=== PATIENT | male | born 2005 | race Caucasian/White ===

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

== ENCOUNTER 2024-09-08 14:41 | Emergency (ER) | payer OTHER ==
[~2024-09-08] VITALS: Ht 175.3 cm; Wt 56.7 kg
[2024-09-08 14:48] VITALS: BP 147/82
== END 2024-09-08 15:32 | disposition home or self-care (01) ==
LOC: ER 14:41
DX: M25.551 Pain in right hip (principal); R09.81 Nasal congestion; V89.2XXA Person injured in unspecified motor-vehicle accident, traffic, initial encounter
CPT/HCPCS: 99283